=== PATIENT | male | born 1990 | race Caucasian/White ===

== ENCOUNTER 2017-12-25 01:29 | Emergency (ER) | payer SELFPAY ==
[~2017-12-25] VITALS: Ht 172.7 cm; Wt 96.0 kg
[2017-12-25 01:40] VITALS: BP 147/83
[2017-12-25 01:55] LABS: BASOPHILS % 0.9 % (0.0-2.0); EOSINOPHILS % 4.5 % (0.0-5.0); HEMATOCRIT. 46.3 % (42.0-52.0); HEMOGLOBIN. 16.3 g/dL (14.0-18.0); LYMPHOCYTES % 31.7 % (20.0-50.0); MEAN CORPUSCULAR HEMOGLOBIN 29.9 pg (28.0-32.0); MEAN CORPUSCULAR VOLUME 85.2 fL (80.0-94.0); MEAN PLATELET VOLUME 8.4 fl (7.4-10.4); MONOCYTES % 6.4 % (2.0-8.0); NEUTROPHILS % 56.5 % (40.0-76.0); PLATELET 241 x1000/uL (130-400); RED BLOOD CELL COUNT 5.44 mill/uL (4.7-6.1); RED CELL DISTRIBUTION WIDTH 13.5 % (11.6-14.6)
[2017-12-25 02:04] LABS: PROTHROMBIN TIME 10.1 sec (9.4-11.6)
[2017-12-25 02:07] LABS: CHLORIDE 112 mEq/L (98-107); ETHANOL BLOOD 185 mg/dL
== END 2017-12-25 02:30 | disposition left against medical advice (07) ==
LOC: ER 01:29 → CANBEDREQ 07:09
DX: R55 Syncope and collapse (principal); E05.90 Thyrotoxicosis, unspecified without thyrotoxic crisis or storm
CPT/HCPCS: 36415; 71045; 80053; 82962; 83605; 83690; 83880; 84484; 85025; 85610; 93005; 99285; G0482; 70450